=== PATIENT | female | born 1970 ===

== ENCOUNTER 2019-09-14 05:10 | Day surgery (SDC) | payer OTHER ==
[~2019-09-14 05:10] MED LIST: AMBIEN10 MG PO; CLONAZEPAM0.5 MG PO; DAFLONEX-XL 11300 MG; EFFEXOR XR75 MG PO; PROTONIX40 MG PO
[2019-09-14] MEDS ORDERED: KEFLEX500 MG PO (10:59)
[2019-09-14] MEDS ORDERED: ULTRACET PO (10:59)
== END 2019-09-14 15:50 | disposition home or self-care (01) ==
LOC: CIR.AMB 05:10 → ADM 07:45 → CIR.AMB 07:45
DX: I83.891 Varicose veins of right lower extremity with other complications (principal); I87.2 Venous insufficiency (chronic) (peripheral)